=== PATIENT | male | born 1990 | race American Indian/Alaskan Native ===

== ENCOUNTER 2017-01-07 17:25 | Emergency (ER) | payer SELFPAY ==
[2017-01-07 18:22] VITALS: BP 184/114
[2017-01-07 19:01] LABS: Basophils % (Auto) 0.3 % (0.0-1.8); Hematocrit 48.1 % (35.5-45.6); Mean Corpuscular HGB Conc 33 % (32-34); Mean Corpuscular Hemoglobin 28 pg (28-32); Mean Corpuscular Volume 83 fl (84-94); Platelet Count 212 K/mm3 (140-440); Red Blood Count 5.81 M/mm3 (3.65-5.03); White Blood Count 13.3 K/mm3 (4.5-11.0)
[2017-01-07 19:17] LABS: Bilirubin,Urine NEG (Negative); Blood,Urine NEG (Negative); Ketones,Urine 80 mg/dL (Negative); Leukocyte Esterase,Urine NEG (Negative); Nitrite,Urine NEG (Negative); Urobilinogen,Urine < 2.0 mg/dL (<2.0)
[2017-01-07 19:18] LABS: Alanine Aminotransferase 6 units/L (7-56); Albumin 4.2 g/dL (3.9-5); Albumin/Globulin Ratio 1.2 %; Alkaline Phosphatase 86 units/L (35-129); Anion Gap 22 mmol/L; BUN/Creatinine Ratio 7.77; Bilirubin,Total 0.7 mg/dL (0.1-1.2); Blood Urea Nitrogen 7 mg/dL (9-20); Carbon Dioxide 21 mmol/L (22-30); Glucose 257 mg/dL (75-100); Lipase 17 units/L (13-60); Potassium 3.7 mmol/L (3.6-5.0); Sodium 133 mmol/L (137-145); Total Protein 7.6 g/dL (6.3-8.2)
--- NOTE | 2017-01-10 12:36 | ED Elopement Review ---
ED Pt Elopement review - Results review Lab results: Laboratory Tests 01/07/17 01/07/17 01/07/17 18:16 18:38 18:38 WBC 13.3 H RBC 5.81 H Hgb 16.0 H Hct 48.1 H MCV 83 L MCH 28 MCHC 33 RDW 13.0 L Plt Count 212 Lymph % (Auto) 8.5 L [place] % (Auto) 2.8 Eos % (Auto) 0.0 Baso % (Auto) 0.3 Lymph # 1.1 L [place] # 0.4 Eos # 0.0 Baso # 0.0 Seg Neutrophils % 88.4 H Seg Neutrophils # 11.7 H Sodium 133 L Potassium 3.7 Chloride 94.0 L Carbon Dioxide 21 L Anion Gap 22 BUN 7 L Creatinine 0.9 Estimated GFR > 60 BUN/Creatinine Ratio 7.77 Glucose 257 H POC Glucose 251 H Calcium 9.0 Total Bilirubin 0.7 AST 15 ALT 6 L Alkaline Phosphatase 86 Total Protein 7.6 Albumin 4.2 Albumin/Globulin Ratio 1.2 Lipase 17 Urine Color Urine Turbidity Urine pH Ur Specific [place] Urine Protein Urine Glucose (UA) Urine Ketones Urine Blood Urine Nitrite Urine Bilirubin Urine Urobilinogen Ur Leukocyte Esterase Urine WBC (Auto) Urine RBC (Auto) U Epithel Cells (Auto) 01/07/17 18:45 WBC RBC Hgb Hct MCV MCH MCHC RDW Plt Count Lymph % (Auto) [place] % (Auto) Eos % (Auto) Baso % (Auto) Lymph # [place] # Eos # Baso # Seg Neutrophils % Seg Neutrophils # Sodium Potassium Chloride Carbon Dioxide Anion Gap BUN Creatinine Estimated GFR BUN/Creatinine Ratio Glucose POC Glucose Calcium Total Bilirubin AST ALT Alkaline Phosphatase Total Protein Albumin Albumin/Globulin Ratio Lipase Urine Color Yellow Urine Turbidity Clear Urine pH 8.0 H Ur Specific [place] 1.043 H Urine Protein 100 mg/dl Urine Glucose (UA) >=500 Urine Ketones 80 Urine Blood Neg Urine Nitrite Neg Urine Bilirubin Neg Urine Urobilinogen < 2.0 Ur Leukocyte Esterase Neg Urine WBC (Auto) 1.0 Urine RBC (Auto) 1.0 U Epithel Cells (Auto) < 1.0 - Call Back decision Pt Call Back Decision: No action required
== END 2017-01-08 00:30 | disposition left against medical advice (07) ==
LOC: ED 17:25
DX: R10.9 Unspecified abdominal pain (principal); R11.2 Nausea with vomiting, unspecified; R19.7 Diarrhea, unspecified; Z53.21 Procedure and treatment not carried out due to patient leaving prior to being seen by health care provider
CPT/HCPCS: 36415; 80053; 81001; 82962; 83690; 85025

== ENCOUNTER 2021-06-04 07:38 | Inpatient (IN) | payer SELFPAY ==
[2021-06-04] MEDS ORDERED: SODIUM CHLORIDE 0.9% 1000 ML 1,000 ML IV ONE (08:14)
[2021-06-04] MEDS ORDERED: MORPHINE 2 MG/1 ML INJ IV ONE ×2 (08:14→11:14)
[2021-06-04] MEDS ORDERED: METOCLOPRAMIDE 10 MG/2 ML INJ IV ONE (08:14)
--- NOTE | 2021-06-04 08:27 | Emergency Department Report ---
ED N/V/D HPI - General Chief complaint: Abdominal Pain Stated complaint: HIGH BLOOD PRESSURE Time Seen by Provider: 06/04/21 08:12 Source: patient, EMS Mode of arrival: Stretcher Limitations: No Limitations - History of Present Illness Initial comments: 30-year-old male, history of hypertension, diabetes, gastroparesis, previous back surgery, presents to ED with nausea and vomiting, headache x4 days. Patient states symptoms initially began after eating some shrimp. States he vomiting x1 day. Symptoms seem to improve over the next 2 days. 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 After eating the steak his vomiting returned. Patient reports generalized abdominal pain. Denies chest pain. He reports associated chills. Patient has not received his COVID-19 vaccine. Patient states he has been out of his blood pressure medication for a couple of weeks. Patient had syncopal episode while in triage. He reports some back pain secondary to his fall. MD complaint: nausea, vomiting, abdominal pain -: days(s) (4) Description of Vomiting: food contents Associated Abdominal Pain: Yes Location: diffuse Radiation: none Severity: moderate Quality: cramping Consistency: constant Improves with: none Worsens with: eating Associated Symptoms: fever/chills, nausea/vomiting - Related Data Allergies Allergy/AdvReac Type Severity Reaction Status Date / Time ondansetron HCl AdvReac Vomiting Verified 01/07/17 18:18 [From Zofran (as hydrochloride)] ED Review of Systems ROS: Stated complaint: HIGH BLOOD PRESSURE Other details as noted in HPI Comment: All other systems reviewed and negative ENT: other (Denies loss of smell or taste) Respiratory: denies: cough, shortness of breath Gastrointestinal: abdominal pain, nausea, vomiting ED Past Medical Hx - Past Medical History Hx Hypertension: Yes Hx Diabetes: Yes - Surgical History Additional Surgical History: TONSILLECTOMY - Social History Smoking Status: Never Smoker Substance Use Type: Alcohol ED Physical Exam - General Limitations: No Limitations General appearance: alert, in no apparent distress - Head Head exam: Present: atraumatic, normocephalic - Eye Eye exam: Present: normal appearance, EOMI - ENT ENT exam: Present: mucous membranes moist - Neck Neck exam: Present: normal inspection - Respiratory Respiratory exam: Present: normal lung sounds bilaterally. Absent: respiratory distress - Cardiovascular Cardiovascular Exam: Present: regular rate, normal rhythm - GI/Abdominal GI/Abdominal exam: Present: soft, tenderness (mild diffuse). Absent: distended - Extremities Exam Extremities exam: Present: normal inspection - Neurological Exam Neurological exam: Present: alert, oriented X3 - Psychiatric Psychiatric exam: Present: normal affect, normal mood - Skin Skin exam: Present: warm, dry, intact, normal color ED Course Vital Signs 06/04/21 06/04/21 06/04/21 07:56 08:01 08:02 Temperature 98.2 F Pulse Rate 85 89 79 Respiratory 12 12 16 Rate Blood Pressure 247/138 Blood Pressure 247/138 [Left] O2 Sat by Pulse 99 100 100 Oximetry 06/04/21 06/04/21 06/04/21 08:15 08:31 08:46 Temperature Pulse Rate 95 H 100 H 85 Respiratory 21 15 14 Rate Blood Pressure 247/138 239/128 239/128 Blood Pressure [Left] O2 Sat by Pulse 100 99 99 Oximetry 06/04/21 06/04/21 06/04/21 09:48 10:01 10:15 Temperature Pulse Rate Respiratory Rate Blood Pressure 244/127 248/154 248/154 Blood Pressure [Left] O2 Sat by Pulse 100 100 98 Oximetry 06/04/21 06/04/21 06/04/21 10:31 10:45 11:01 Temperature Pulse Rate Respiratory Rate Blood Pressure 234/120 234/120 225/117 Blood Pressure [Left] O2 Sat by Pulse 99 98 99 Oximetry 06/04/21 06/04/21 06/04/21 11:15 11:31 11:40 Temperature Pulse Rate Respiratory Rate Blood Pressure 237/141 238/134 238/134 Blood Pressure [Left] O2 Sat by Pulse 99 99 99 Oximetry 06/04/21 06/04/21 06/04/21 11:42 11:44 11:46 Temperature Pulse Rate Respiratory Rate Blood Pressure 238/134 238/134 238/134 Blood Pressure [Left] O2 Sat by Pulse 99 100 99 Oximetry 06/04/21 06/04/21 06/04/21 11:48 11:55 12:01 Temperature Pulse Rate 102 H Respiratory 19 Rate Blood Pressure 238/134 237/134 257/119 Blood Pressure [Left] O2 Sat by Pulse 100 89 98 Oximetry 06/04/21 06/04/21 06/04/21 12:05 12:07 12:09 Temperature Pulse Rate 99 H 98 H 98 H Respiratory 18 17 19 Rate Blood Pressure 257/119 257/119 257/119 Blood Pressure [Left] O2 Sat by Pulse 99 99 99 Oximetry 06/04/21 06/04/21 06/04/21 12:11 12:13 12:15 Temperature Pulse Rate 98 H 97 H 98 H Respiratory 13 16 12 Rate Blood Pressure 257/119 257/119 257/119 Blood Pressure [Left] O2 Sat by Pulse 99 99 99 Oximetry 06/04/21 06/04/21 06/04/21 12:17 12:19 12:21 Temperature Pulse Rate 97 H 98 H 97 H Respiratory 18 18 20 Rate Blood Pressure 257/119 257/119 257/119 Blood Pressure [Left] O2 Sat by Pulse 99 99 99 Oximetry 06/04/21 06/04/21 06/04/21 12:22 12:23 12:25 Temperature Pulse Rate 97 H 96 H 97 H Respiratory 12 12 17 Rate Blood Pressure 198/120 198/120 198/120 Blood Pressure [Left] O2 Sat by Pulse 99 99 99 Oximetry 06/04/21 06/04/21 06/04/21 12:27 12:29 12:31 Temperature Pulse Rate 98 H 98 H 98 H Respiratory 19 19 19 Rate Blood Pressure 198/120 237/134 237/134 Blood Pressure [Left] O2 Sat by Pulse 99 99 99 Oximetry 06/04/21 06/04/21 06/04/21 12:33 12:35 12:37 Temperature Pulse Rate 98 H 98 H 98 H Respiratory 20 18 19 Rate Blood Pressure 237/134 237/134 237/134 Blood Pressure [Left] O2 Sat by Pulse 99 99 99 Oximetry 06/04/21 06/04/21 06/04/21 12:39 12:41 12:43 Temperature Pulse Rate 98 H 99 H 99 H Respiratory 19 19 18 Rate Blood Pressure 237/134 237/134 237/134 Blood Pressure [Left] O2 Sat by Pulse 99 99 99 Oximetry 06/04/21 06/04/21 06/04/21 12:45 12:47 12:49 Temperature Pulse Rate 99 H 101 H 98 H Respiratory 18 18 18 Rate Blood Pressure 237/134 237/134 237/134 Blood Pressure [Left] O2 Sat by Pulse 99 99 99 Oximetry 08/29/21 08/29/21 08/29/21 12:51 12:52 12:53 Temperature Pulse Rate 99 H 100 H 98 H Respiratory 15 13 15 Rate Blood Pressure 237/134 217/118 217/118 Blood Pressure [Left] O2 Sat by Pulse 100 99 99 Oximetry 06/04/21 06/04/21 12:55 12:56 Temperature Pulse Rate 99 H Respiratory 16 Rate Blood Pressure 217/118 Blood Pressure 198/120 [Left] O2 Sat by Pulse 99 Oximetry ED Medical Decision Making - Lab Data Result diagrams: 06/04/21 08:24 06/04/21 08:24 - Radiology Data Radiology results: report reviewed, image reviewed - Medical Decision Making 30-year-old male, history of hypertension, diabetes, gastroparesis, presents to ED with headache, nausea and vomiting x4 days. Patient also reports some diffuse abdominal pain. Patient is hypertensive, states he has been off of his BP meds for a couple of weeks now. Labs show slight elevation in WBCs to 13.7. Patient also has some renal insufficiency with BUN and creatinine of 34 and 2.1. Patient states he has never been told of any kidney issues. Patient has been given 1 L bolus of IV fluids, along with morphine and Reglan for pain and n ausea control. CT head and CT abdomen pelvis show no acute findings. X-ray lumbar spine is normal. Blood pressure has been difficult to control. Patient was initially given hydralazine 20 mg IV. Then labetalol 20 mg grams IV. Patient remained extremely hypertensive. He was placed on a Cardene drip. Patient will be admitted to hospitalist, Dr. Marrero, for further management. Critical Care Time: Yes Critical care time in (mins) excluding proc time.: 35 Critical care attestation.: If time is entered above; I have spent that time in minutes in the direct care of this critically ill patient, excluding procedure time. Critical Care Time: 35 min ED Disposition Clinical Impression: Nausea and vomiting, Syncope, Hypertensive emergency, Acute renal failure Disposition: ADMITTED INPATIENT Is pt being admited?: Yes Condition: Stable Instructions: Syncope (ED), Hypertension (ED) Referrals: PRIMARY CARE, [Primary Care Provider] - 3-5 Days Time of Disposition: 12:54
[2021-06-04 08:48] LABS: Basophils % (Auto) 0.3 % (0.0-1.8); Eosinophils % (Auto) 0.2 % (0.0-4.3); Hematocrit 46.8 % (35.5-45.6); Hemoglobin 16.3 gm/dl (11.8-15.2); Lymphocytes # (Auto) 1.9 K/mm3 (1.2-5.4); Lymphocytes % (Auto) 14.1 % (13.4-35.0); Mean Corpuscular HGB Conc 35 % (32-34); Mean Corpuscular Volume 86 fl (84-94); Monocytes # (Auto) 0.9 K/mm3 (0.0-0.8); Monocytes % (Auto) 6.4 % (0.0-7.3); Platelet Count 168 K/mm3 (140-440); Red Blood Count 5.45 M/mm3 (3.65-5.03); Red Cell Distribution Width 13.1 % (13.2-15.2)
[2021-06-04 09:10] LABS: Alanine Aminotransferase 5 units/L (7-56); Albumin 3.9 g/dL (3.9-5); BUN/Creatinine Ratio 16; Blood Urea Nitrogen 34 mg/dL (9-20); Calcium 9.3 mg/dL (8.4-10.2); Hemolysis Index 17
[2021-06-04 09:11] LABS: Bilirubin,Direct < 0.2 mg/dL (0-0.2)
--- NOTE | 2021-06-04 09:11 | Cat Scan Report ---
CT HEAD WITHOUT CONTRAST INDICATION / CLINICAL INFORMATION: syncope, injury. TECHNIQUE: All CT scans at this location are performed using CT dose reduction for ALARA by means of automated e xposure control. COMPARISON: None available. FINDINGS: HEMORRHAGE: No evidence of intracranial hemorrhage or extra-axial fluid collection. EXTRA-AXIAL SPACES: Cortical sulci, sylvian fissures and basilar cisterns have an unremarkable appear ance. VENTRICULAR SYSTEM: The third and lateral ventricles are of normal size and configuration. CEREBRAL PARENCHYMA: No areas of abnormal brain parenchymal attenuation are identified. There is no i ndication of recent infarction. MIDLINE SHIFT OR HERNIATION: There is no mass effect. CEREBELLUM / BRAINSTEM: Brainstem and cerebellum have an unremarkable appearance. MIDLINE STRUCTURES:No abnormalities of the pituitary gland or pineal region are identified. INTRACRANIAL VESSELS:No abnormalities are identified on this noncontrast head CT. ORBITS: visualized portions of the orbits have an unremarkable appearance. SOFT TISSUES of HEAD: No significant abnormality. CALVARIUM: Evaluation of bone windows reveals no abnormalities. PARANASAL SINUSES / MASTOID AIR CELLS: Visualized portions of the paranasal sinuses are free from inf lammatory mucosal disease. Mastoid air cells are normally pneumatized. IMPRESSION: 1. Normal head CT without contrast. Signer Name: Deon Frederick MD Signed: 06/04/2021 9:07 AM Workstation Name: [id number]
--- NOTE | 2021-06-04 09:36 | XRay Report ---
ABDOMEN 3 VIEW(S) INDICATION / CLINICAL INFORMATION: vomiting, abd pain. COMPARISON: None available. FINDINGS: TUBES / LINES: None. BOWEL GAS PATTERN: No significant abnormality. FREE AIR / EXTRALUMINAL GAS: None seen. ADDITIONAL FINDINGS: No significant additional findings. CHEST: Visualized chest shows no significant abnormality. IMPRESSION: 1. No significant abnormality. Signer Name: Jeremi Kidd MD Signed: 06/04/2021 9:32 AM Workstation Name: [id number]
--- NOTE | 2021-06-04 10:07 | XRay Report ---
LUMBAR SPINE 3 VIEWS INDICATION / CLINICAL INFORMATION: fall, injury. COMPARISON: None available. FINDINGS: VERTEBRAE: No acute fracture. No significant malalignment. DISC SPACES / FACET JOINTS:No significant abnormality. PARASPINAL SOFT TISSUES:No significant abnormality. ADDITIONAL FINDINGS: None. Signer Name: Jeremi Kidd MD Signed: 06/04/2021 10:03 AM Workstation Name: [id number]
[2021-06-04] MEDS ORDERED: hydrALAZINE 20 MG/1 ML INJ ONE (10:15)
[2021-06-04] MEDS ORDERED: hydrALAZINE 20 MG/1 ML INJ IV ONE (10:15)
--- NOTE | 2021-06-04 12:18 | Cat Scan Report ---
CT ABDOMEN AND PELVIS WITHOUT CONTRAST INDICATION / CLINICAL INFORMATION: abdominal pain. Vomiting. TECHNIQUE: Axial CT images were obtained through the abdomen and pelvis without IV contrast. All CT scans at this location are performed using CT dose reduction for ALARA by means of automated exposure control. COMPARISON: No prior CT for comparison. Radiograph dated 06/04/21. FINDINGS: LOWER CHEST: No significant abnormality. LIVER: No significant abnormality. GALLBLADDER: No significant abnormality. BILE DUCTS: No significant abnormality. PANCREAS: No significant abnormality. SPLEEN: No significant abnormality. ADRENALS: No significant abnormality. RIGHT KIDNEY / URETER: No significant abnormality. LEFT KIDNEY / URETER: No significant abnormality. STOMACH / SMALL BOWEL: No significant abnormality. COLON: No significant abnormality. APPENDIX: No significant abnormality. PERITONEUM: No free fluid. No free air. No fluid collection. LYMPH NODES: No significant adenopathy. AORTA / ARTERIES: No significant abnormality. IVC / VEINS: No significant abnormality. URINARY BLADDER: No significant abnormality. REPRODUCTIVE ORGANS: No significant abnormality. ADDITIONAL FINDINGS: None. SKELETAL SYSTEM: No significant abnormality. IMPRESSION: 1. No acute process in the abdomen or pelvis. Signer Name: Jeremi Kidd MD Signed: 06/04/2021 12:14 PM Workstation Name: [id number]
[2021-06-04] MEDS ORDERED: niCARdipine 50 MG in SODIUM CHLORIDE 0.9% 250ML 230 ML IV SCH (14:00)
[2021-06-04] MEDS ORDERED: ONDANSETRON 4 MG/2 ML INJ IV PRN (22:39)
[2021-06-04] MEDS ORDERED: HYDROmorphone 1 MG/1 ML INJ IV PRN (22:39)
[2021-06-04] MEDS ORDERED: ACETAMINOPHEN 325 MG TAB PO PRN (22:39)
[2021-06-04] MEDS ORDERED: METOCLOPRAMIDE 10 MG/2 ML INJ IV PRN (22:39)
[2021-06-05] MEDS: oxyCODONE /ACETAMINOPHEN 5-325MG TAB PO PRN ×3 (00:36→12:46)
[2021-06-05] MEDS: FAMOTIDINE 20 MG TAB PO SCH ×2 (00:36→10:11)
[2021-06-05] MEDS: VALSARTAN 160MG TAB PO SCH ×2 (00:37→10:15)
[2021-06-05] MEDS: NIFEdipine XL 30 MG TAB PO SCH ×2 (00:37→10:11)
[2021-06-05] MEDS: carvediloL 12.5 MG TAB PO SCH ×2 (00:38→10:11)
[2021-06-05 05:51] VITALS: BP 139/82
[2021-06-05 06:29] LABS: Basophils % (Auto) 0.4 % (0.0-1.8); Eosinophils # (Auto) 0.1 K/mm3 (0.0-0.4); Eosinophils % (Auto) 0.8 % (0.0-4.3); Hematocrit 41.3 % (35.5-45.6); Hemoglobin 14.4 gm/dl (11.8-15.2); Lymphocytes # (Auto) 2.6 K/mm3 (1.2-5.4); Lymphocytes % (Auto) 26.1 % (13.4-35.0); Mean Corpuscular HGB Conc 35 % (32-34); Mean Corpuscular Volume 86 fl (84-94); Monocytes % (Auto) 10.1 % (0.0-7.3); Platelet Count 173 K/mm3 (140-440); Red Blood Count 4.83 M/mm3 (3.65-5.03); Red Cell Distribution Width 13.1 % (13.2-15.2)
--- NOTE | 2021-06-05 06:35 | History and Physical Report ---
History of Present Illness Date of examination: 06/04/21 Date of admission: 06/04/21 18:13 Chief complaint: Nausea vomiting and headache for 4 days History of present illness: 30-year-old male with history of hypertension and noncompliance, gastroparesis, back surgery and diabetes comes to the ER with nausea vomiting and headache of 4 days duration. Patient is attributed to eating strain. In the emergency room patient's blood pressure is 220/120. Patient was started on Cardene drip because of the high blood pressure. No weakness of any extremities. No dysa rthria. No chest pain. No shortness of breath. - Past Medical History Hx Hypertension: Yes Hx Diabetes: Yes - Surgical History Additional Surgical History: TONSILLECTOMY - Social History Smoking Status: Never Smoker Substance Use Type: Alcohol Family history Htn Review of Systems ROS: Constitutional no weight loss or weight gain no fever or chills HEENT severe headache present. Neck no neck stiffness no lymph gland enlargement Chest and lungs no shortness of breath cough or wheezing CVS no chest pain no diaphoresis no palpitations GI nausea vomiting and diarrhea. Genitourinary system no dysuria no flank pain Musculoskeletal system no muscle pains no joint pains [employer] no syncope no seizures Skin no rash no itching Psychiatric no depression no homicidal or suicidal tendencies Hematologic no lymphedema or bruising Endocrine no polydipsia no polyuria no cold intolerance no heat intolerance Medications and Allergies Allergies Allergy/AdvReac Type Severity Reaction Status Date / Time ondansetron HCl AdvReac Vomiting Verified 06/04/21 15:09 [From Zofran (as hydrochloride)] Active Meds: Active Medications Acetaminophen (Acetaminophen 325 Mg Tab) 650 mg PO Q4H PRN PRN Reason: Pain MILD(1-3)/Fever >100.5/OGDEN Carvedilol (Carvedilol 12.5 Mg Tab) 12.5 mg PO BID [facility] Last Admin: 06/05/21 00:38 Dose: 12.5 mg Documented by: Enoxaparin Sodium (Enoxaparin 40 Mg/0.4 Ml Inj) 40 mg SUB-Q QDAY [facility] Famotidine (Famotidine 20 Mg Tab) 20 mg PO BID [facility] Last Admin: 06/05/21 00:36 Dose: 20 mg Documented by: Hydromorphone HCl (Hydromorphone 1 Mg/1 Ml Inj) 0.5 mg IV Q3H PRN PRN Reason: Pain , Severe (7-10) Metoclopramide HCl (Metoclopramide 10 Mg/2 Ml Inj) 10 mg IV Q6H PRN PRN Reason: Nausea And Vomiting Nifedipine (Nifedipine Xl 30 Mg Tab) 30 mg PO Q12HR [facility] Last Admin: 06/05/21 00:37 Dose: 30 mg Documented by: Ondansetron HCl (Ondansetron 4 Mg/2 Ml Inj) 4 mg IV Q8H PRN PRN Reason: Nausea And Vomiting Oxycodone/Acetaminophen (Oxycodone /Acetaminophen 5-325mg Tab) 1 tab PO Q6H PRN PRN Reason: Pain, Moderate (4-6) Last Admin: 06/05/21 00:36 Dose: 1 tab Documented by: Sodium Chloride (Sodium Chloride 0.9% 10 Ml Flush Syringe) 10 ml IV BID [facility] Sodium Chloride (Sodium Chloride 0.9% 10 Ml Flush Syringe) 10 ml IV PRN PRN PRN Reason: LINE FLUSH Valsartan (Valsartan 160mg Tab) 160 mg PO Q12HR [facility] Last Admin: 06/05/21 00:37 Dose: 160 mg Documented by: Exam - Constitutional Vitals: Temp Pulse Resp BP Pulse Ox 98.4 F 82 18 139/82 97 06/05/21 05:01 06/05/21 05:01 06/05/21 05:01 06/05/21 05:01 06/05/21 05:01 General appearance: Present: no acute distress, well-nourished - EENT Eyes: Present: PERRL ENT: hearing intact, clear oral mucosa - Neck Neck: Present: supple, normal ROM - Respiratory Respiratory effort: normal Respiratory: bilateral: CTA - Cardiovascular Heart rate: 78 Rhythm: regular Heart Sounds: Present: S1 & S2. Absent: rub, click - Extremities Extremities: pulses symmetrical, No edema Peripheral Pulses: within normal limits - Abdominal General gastrointestinal: Present: soft, non-tender, non-distended, normal bowel sounds Male genitourinary: Present: normal - Integumentary Integumentary: Present: clear, warm, dry - Musculoskeletal Musculoskeletal: gait normal, strength equal bilaterally - Psychiatric Psychiatric: appropriate mood/affect, intact judgment & insight - Neurologic Neurologic: CNII-XII intact, moves all extremities HEART Score - HEART Score History: Moderately suspicious Age: < 45 Risk factors: 1-2 risk factors Troponin: < normal limit - Critical Actions Critical Actions: 0-3 pts:0.9-1.7%risk of adverse cardiac event.Candidate for discharge Results - Labs CBC & Chem 7: 06/05/21 05:46 06/04/21 08:24 Labs: Laboratory Last Values WBC 10.1 K/mm3 (4.5-11.0) 06/05/21 05:46 RBC 4.83 M/mm3 (3.65-5.03) 06/05/21 05:46 Hgb 14.4 gm/dl (11.8-15.2) 06/05/21 05:46 Hct 41.3 % (35.5-45.6) 06/05/21 05:46 MCV 86 fl (84-94) 06/05/21 05:46 MCH 30 pg (28-32) 06/05/21 05:46 MCHC 35 % (32-34) H 06/05/21 05:46 RDW 13.1 % (13.2-15.2) L 06/05/21 05:46 Plt Count 173 K/mm3 (140-440) 06/05/21 05:46 Lymph % (Auto) 26.1 % (13.4-35.0) 06/05/21 05:46 [place] % (Auto) 10.1 % (0.0-7.3) H 06/05/21 05:46 Eos % (Auto) 0.8 % (0.0-4.3) 06/05/21 05:46 Baso % (Auto) 0.4 % (0.0-1.8) 06/05/21 05:46 Lymph # (Auto) 2.6 K/mm3 (1.2-5.4) 06/05/21 05:46 [place] # (Auto) 1.0 K/mm3 (0.0-0.8) H 06/05/21 05:46 Eos # (Auto) 0.1 K/mm3 (0.0-0.4) 06/05/21 05:46 Baso # (Auto) 0.0 K/mm3 (0.0-0.1) 06/05/21 05:46 Seg Neutrophils % 62.6 % (40.0-70.0) 06/05/21 05:46 Seg Neutrophils # 6.3 K/mm3 (1.8-7.7) 06/05/21 05:46 Sodium 135 mmol/L (137-145) L 06/04/21 08:24 Potassium 3.4 mmol/L (3.6-5.0) L 06/04/21 08:24 Chloride 98.2 mmol/L (98-107) 06/04/21 08:24 Carbon Dioxide 25 mmol/L (22-30) 06/04/21 08:24 Anion Gap 15 mmol/L 06/04/21 08:24 BUN 34 mg/dL (9-20) H 06/04/21 08:24 Creatinine 2.1 mg/dL (0.8-1.3) H 06/04/21 08:24 Estimated GFR 45 ml/min 06/04/21 08:24 BUN/Creatinine Ratio 16 % 06/04/21 08:24 Glucose 233 mg/dL (75-100) H 06/04/21 08:24 Calcium 9.3 mg/dL (8.4-10.2) 06/04/21 08:24 Total Bilirubin 0.50 mg/dL (0.1-1.2) 06/04/21 08:24 Direct Bilirubin < 0.2 mg/dL (0-0.2) 06/04/21 08:24 Indirect Bilirubin 0.3 mg/dL 06/04/21 08:24 AST 16 units/L (5-40) 06/04/21 08:24 ALT 5 units/L (7-56) L 06/04/21 08:24 Alkaline Phosphatase 80 units/L (35-129) 06/04/21 08:24 Total Protein 7.3 g/dL (6.3-8.2) 06/04/21 08:24 Albumin 3.9 g/dL (3.9-5) 06/04/21 08:24 Albumin/Globulin Ratio 1.1 % 06/04/21 08:24 Lipase 53 units/L (13-60) 06/04/21 08:24 - Imaging and Cardiology EKG: report reviewed (Sinus rhythm, LVH by voltage criteria) Imaging and Cardiology: Head CT No acute findings Lumbar spine-no acute findings Chest x-ray/abdominal x-ray No acute findings next Abdominal CAT scan No acute findings Rivera/IV: Voiding Method Toilet Assessment and Plan Advance Directives: Yes (Full code) VTE prophylaxis?: Chemical Plan of care discussed with patient/family: Yes - Patient Problems (1) Hypertensive emergency Current Visit: Yes Status: Acute Plan to address problem: Patient was started on Cardene drip by the ER physician Blood pressure came down into within normal limits while in the emergency room for 3 to 4 hours Valsartan 160 every 12, Coreg 12.5 every 12 and Procardia 30 every 12 added. Patient counseled about compliance. (2) Insulin dependent diabetes mellitus Current Visit: Yes Status: Chronic Plan to address problem: Continue insulin coverage Adjust insulin dosage Check hemoglobin A1c (3) Gastroparesis Current Visit: Yes Status: Acute Plan to address problem: Patient needs to eat small meals to avoid episodes of gastroparesis Small meals more frequently Nuclear scan was not ordered (4) ANA CRISTINA (acute kidney injury) Current Visit: Yes Status: Acute Plan to address problem: IV fluids for now Vasomotor nephropathy (5) Polycythemia due to fall in plasma volume Current Visit: Yes Status: Acute Plan to address problem: IV fluids for now (6) Hypokalemia Current Visit: Yes Status: Acute Plan to address problem: Supplemented (7) Hyponatremia Current Visit: Yes Status: Acute Plan to address problem: IV fluids for 10 hours (8) DVT prophylaxis Current Visit: Yes Status: Acute Plan to address problem: On anticoagulation and GI prophylaxis (9) Discharge planning issues Current Visit: Yes Status: Acute Plan to address problem: Patient was downgraded from ICU to telemetry Patient needs counseling and follow-up with primary care on a regular basis May be discharged in 24 to 48 hours
[2021-06-05 06:38] LABS: Albumin 3.3 g/dL (3.9-5); BUN/Creatinine Ratio 14; Blood Urea Nitrogen 24 mg/dL (9-20); Calcium 8.7 mg/dL (8.4-10.2); Hemolysis Index 4
[2021-06-05 06:46] LABS: Alanine Aminotransferase < 5 units/L (7-56)
--- NOTE | 2021-06-05 08:25 | Discharge Summary ---
Providers - Providers Date of Admission: 06/04/21 18:13 Attending physician: JANIS CRENSHAW MD Primary care physician: MACHINE FOLDER Hospitalization Reason for admission: nausea Condition: Stable Hospital course: History of present illness: 30-year-old male with history of hypertension and noncompliance, gastroparesis, back surgery and diabetes comes to the ER with nausea vomiting and headache of 4 days duration. Patient is attributed to eating strain. In the emergency room patient's blood pressure is 220/120. Patient was started on Cardene drip because of the high blood pressure. No weakness of any extremities. No dysarthria. No chest pain. No shortness of breath. EKG: report reviewed (Sinus rhythm, LVH by voltage criteria) Imaging and Cardiology: Head CT No acute findings Lumbar spine-no acute findings Chest x-ray/abdominal x-ray No acute findings next Abdominal CAT scan No acute findings A&P Assessment and Plan Advance Directives: Yes (Full code) VTE prophylaxis?: Chemical Plan of care discussed with patient/family: Yes - Patient Problems (1) Hypertensive emergency Current Visit: Yes Status: Acute Plan to address problem: Patient was started on Cardene drip by the ER physician Blood pressure came down into within normal limits while in the emergency room for 3 to 4 hours Valsartan 160 every 12, Coreg 12.5 every 12 and Procardia 30 every 12 added. Patient counseled about compliance. (2) Insulin dependent diabetes mellitus Current Visit: Yes Status: Chronic Plan to address problem: Continue insulin coverage Adjust insulin dosage Check hemoglobin A1c (3) Gastroparesis Current Visit: Yes Status: Acute Plan to address problem: Patient needs to eat small meals to avoid episodes of gastroparesis Small meals more frequently Nuclear scan was not ordered (4) ANA CRISTINA (acute kidney injury) Current Visit: Yes Status: Acute Plan to address problem: IV fluids for now Vasomotor nephropathy (5) Polycythemia due to fall in plasma volume Current Visit: Yes Status: Acute Plan to address problem: IV fluids for now (6) Hypokalemia Current Visit: Yes Status: Acute Plan to address problem: Supplemented (7) Hyponatremia Current Visit: Yes Status: Acute Plan to address problem: IV fluids for 10 hours (8) DVT prophylaxis Current Visit: Yes Status: Acute Plan to address problem: On anticoagulation and GI prophylaxis (9) Discharge planning issues Current Visit: Yes Status: Acute Plan to address problem: Patient was downgraded from ICU to telemetry Patient needs counseling and follow-up with primary care on a regular basis May be discharged in 24 to 48 hours Hospital Course: Patient admitted for hypertensive emergency. He was treated with IV Cardene drip and restarted on anti-hypertensive therapy. He was counseled about compliance and how this likely led to his hospital admission. ANA CRISTINA secondary to vasomotor nephropathy noted on admission. This has improved after IV fluid administration. Patient advised to avoid nephrotoxic agents i.e. NSAIDs and to continue to have adequate hydration. On follow-up encounter his nausea vomiting had resolved and his only complaint was left-sided hip pain. Reassured the patient that his imaging studies did not demonstrate any acute fracture his hip. Obtained physical therapy who assessed patient ability to ambulate. Plan for discharge home today. Prescriptions for antihypertensive medication and pain medication written. Disposition: HOME / SELF CARE / HOMELESS Final Discharge Diagnosis (Prints w/discharge instructions): Hypertensive Emergency Time spent for discharge: 35 Core Measure Documentation - Palliative Care Palliative Care/ Comfort Measures: Not Applicable - Core Measures Any of the following diagnoses?: none Exam - Physical Exam Narrative exam: General appearance: Present: no acute distress, well-nourished - EENT Eyes: Present: PERRL ENT: hearing intact, clear oral mucosa - Neck Neck: Present: supple, normal ROM - Respiratory Respiratory effort: normal Respiratory: bilateral: CTA - Cardiovascular Heart rate: 78 Rhythm: regular Heart Sounds: Present: S1 & S2. Absent: rub, click - Extremities Extremities: pulses symmetrical, No edema Peripheral Pulses: within normal limits - Abdominal General gastrointestinal: Present: soft, non-tender, non-distended, normal bowel sounds Male genitourinary: Present: normal - Integumentary Integumentary: Present: clear, warm, dry - Musculoskeletal Musculoskeletal: Tenderness to lower left lumbar region and hip. Strength equal bilaterally - Psychiatric Psychiatric: appropriate mood/affect, intact judgment & insight - Neurologic Neurologic: CNII-XII intact, moves all extremities - Constitutional Vitals: Temp Pulse Resp BP Pulse Ox 98.4 F 82 18 139/82 98 06/05/21 05:01 06/05/21 05:01 06/05/21 05:01 06/05/21 05:01 06/05/21 06:50 Plan Activity: no restrictions Weight Bearing Status: Weight Bear as Tolerated Diet: diabetic, renal Follow up with: PRIMARY CARE, [Primary Care Provider] - 3-5 Days Prescriptions: carvediloL [Coreg] 12.5 mg PO BID 30 Days #60 tab Valsartan [Diovan] 160 mg PO Q12HR 30 Days #60 tablet oxyCODONE /ACETAMINOPHEN [Percocet 5/325 mg] 1 tab PO Q6H PRN 3 Days #12 tablet PRN Reason: Pain, Moderate (4-6) NIFEdipine XL [Procardia Xl] 30 mg PO Q12HR 30 Days #60 tablet
[2021-06-05] MEDS ORDERED: POTASSIUM CHLORIDE ER 20 MEQ TAB PO NR (09:00)
[2021-06-05] MEDS ORDERED: ENOXAPARIN 40 MG/0.4 ML INJ SUB-Q SCH (10:00)
[2021-06-05] MEDS ORDERED: MORPHINE 2 MG/1 ML INJ IV NR (10:32)
--- NOTE | 2021-06-06 08:53 | Electrocardiograph Report ---
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
--- NOTE | 2021-06-06 08:54 | Electrocardiograph Report ---
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
== END 2021-06-05 15:40 | disposition home or self-care (01) | DRG 304 ==
LOC: ED 07:38 → CC1 18:13 → 4A 22:49
PROVIDERS: ADMIT Internal Medicine; ATTEND Internal Medicine
DX: I16.1 Hypertensive emergency (principal); N17.0 Acute kidney failure with tubular necrosis; E87.1 Hypo-osmolality and hyponatremia; I10 Essential (primary) hypertension; K31.84 Gastroparesis; E11.43 Type 2 diabetes mellitus with diabetic autonomic (poly)neuropathy; Z88.8 Allergy status to other drugs, medicaments and biological substances; Z91.19 Patient's noncompliance with other medical treatment and regimen; D75.1 Secondary polycythemia
CPT/HCPCS: 36415; 70450; 72100; 74022; 74176; 80048; 80053; 80076; 83690; 85025; 93005; G0378; J0360; J1650; J2270; J2765; J7030; J7050